=== PATIENT | female | born 1930 | race Caucasian/White ===

== ENCOUNTER 2018-02-23 15:21 | Inpatient (IN) | payer MEDICARE, OTHER ==
[2018-02-23] MEDS ORDERED: VALS160T2 PO (17:50)
[2018-02-23] MEDS ORDERED: ESCI10TA PO (17:50)
[2018-02-23] MEDS ORDERED: AMLO10TA2 PO (17:50)
[2018-02-23] MEDS ORDERED: DONE5TAB34 PO (17:50)
[2018-02-23] MEDS ORDERED: ATOR10TA PO (17:50)
[2018-02-23] MEDS ORDERED: MEMA10TA PO (17:50)
[2018-02-23] MEDS ORDERED: ACETAMINOPHEN 325 MG TABLET PO PRN (18:00)
[2018-02-23] MEDS ORDERED: MAG HYDROX/AL HYDROX/SIMETH 30 ML UDC PO PRN (18:00)
[2018-02-23] MEDS ORDERED: LORAZEPAM 0.5 MG TABLET PO PRN (18:00)
[2018-02-23] MEDS ORDERED: MAGNESIUM HYDROXIDE 30 ML UDC PO PRN (18:00)
[2018-02-23] MEDS ORDERED: ZOLPIDEM TARTRATE 5 MG TABLET PO PRN (18:00)
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
[2018-02-23] MEDS ORDERED: ESCITALOPRAM OXALATE (10 MG) 10 MG TABLET PO SCH (18:30)
[2018-02-23 19:52] VITALS: BP 155/59
[2018-02-23] MEDS: ATORVASTATIN 10 MG TABLET PO SCH (21:46)
[2018-02-23 23:00] VITALS: BP 138/66
[2018-02-24 07:40] LABS: CHOLESTEROL 147 mg/dL (<200); HDL CHOLESTEROL 58 mg/dL (40-60); LDL 82 mg/dL (0-99); TRIGLYCERIDES 76 mg/dL (30-150)
[2018-02-24 07:41] LABS: ALANINE AMINOTRANSFERASE 21 U/L (12-78); ALBUMIN 3.2 g/dL (3.4-5.0); ALKALINE PHOSPHATASE 76 U/L (46-116); ASPARTATE AMINOTRANSFERASE 18 U/L (15-37); BILIRUBIN,TOTAL 0.5 mg/dL (0.2-1.0); CALCIUM, SERUM 8.9 mg/dL (8.5-10.1); CARBON DIOXIDE 27 mmol/L (21-32); CHLORIDE 108 mmol/L (98-107); CREATININE 1.2 mg/dL (0.6-1.3); GLUCOSE 85 mg/dL (74-106); POTASSIUM 4.7 mmol/L (3.5-5.1); SODIUM SERUM 140 mmol/L (136-145); TOTAL PROTEIN, SERUM 6.6 g/dL (6.4-8.2); UREA NITROGEN, BLOOD 36 mg/dL (7-18)
[2018-02-24 08:00] VITALS: BP 155/62
[2018-02-24] MEDS: MEMANTINE HCL 5 MG TABLET PO SCH (08:17)
[2018-02-24] MEDS: AMLODIPINE BESYLATE 10 MG TABLET PO SCH (08:17)
[2018-02-24] MEDS: VALSARTAN 80 MG TABLET PO SCH (08:17)
[2018-02-24] MEDS: DONEPEZIL 5 MG TABLET PO SCH (08:18)
[2018-02-24] MEDS: CEPHALEXIN MONOHYDRATE 250 MG CAPSULE PO SCH ×3 (12:00→17:28)
[2018-02-24 16:00] VITALS: BP 138/57
--- NOTE | 2018-02-24 16:14 | NUR ---
Initial Discharge Plan: Pt currently lives in an apartment with her daughter, Ana Mejia ([phone]), located at [address] [place] [address]. Per pt, she would like to return there and her daughter stated that she wanted the same discharge plan as long as they get provided with home health. FREDI will work with the pt, the DPOA and the MD regarding appropriate discharge planning. SW will form a safe and proper discharge.
--- NOTE | 2018-02-24 16:15 | NUR ---
SW spoke with the pt's daughter, Ana Mejia ([phone]), and informed her that both her and her mother would want home health set up for them upon discharge.
[2018-02-24 20:03] VITALS: BP 164/59
[2018-02-24] MEDS: QUETIAPINE FUMARATE 25 MG TABLET PO SCH (21:22)
[2018-02-24] MEDS: ATORVASTATIN 10 MG TABLET PO SCH (21:22)
[2018-02-24 23:00] VITALS: BP 135/68
--- NOTE | 2018-02-25 03:06 | NUR ---
GPS RN NOTES PT. REFUSED KEFLEX AT 0000 ,EXPLAINED RISKS AND BENEFITS , ENCOURAGED, EXPLAINED RISKS AND BENEFITS STILL REFUSED , WILL CONTINUE TO ENCOURAGED TO COMPLY WITH MD REGIMEN .
[2018-02-25] MEDS: CEPHALEXIN MONOHYDRATE 250 MG CAPSULE PO SCH ×2 (05:30)
[2018-02-25] MEDS: AMLODIPINE BESYLATE 10 MG TABLET PO SCH (08:26)
[2018-02-25] MEDS: DONEPEZIL 5 MG TABLET PO SCH (08:26)
[2018-02-25] MEDS: VALSARTAN 80 MG TABLET PO SCH (08:26)
[2018-02-25] MEDS: MEMANTINE HCL 5 MG TABLET PO SCH (08:26)
[2018-02-25 08:33] VITALS: BP 156/61
[2018-02-25] MEDS: ESCITALOPRAM OXALATE (10 MG) 10 MG TABLET PO SCH (09:34)
--- NOTE | 2018-02-25 13:59 | NUR ---
SW called [facility] ([phone]) that the pt had before to see if they would be able to set it up for the pt once again but they stated that they do not have the staff available in the area anymore.
[2018-02-25] MEDS: CEPHALEXIN MONOHYDRATE 500 MG CAPSULE PO SCH ×2 (14:02→17:31)
[2018-02-25 16:18] VITALS: BP 146/62
[2018-02-25 20:00] VITALS: BP 106/51
[2018-02-25] MEDS: ATORVASTATIN 10 MG TABLET PO SCH (21:47)
[2018-02-25] MEDS: QUETIAPINE FUMARATE 25 MG TABLET PO SCH (21:47)
[2018-02-26] MEDS: CEPHALEXIN MONOHYDRATE 500 MG CAPSULE PO SCH ×4 (01:12→17:31)
[2018-02-26 08:00] VITALS: BP 119/69
[2018-02-26] MEDS: VALSARTAN 80 MG TABLET PO SCH (09:04)
[2018-02-26] MEDS: MEMANTINE HCL 5 MG TABLET PO SCH (09:04)
[2018-02-26] MEDS: ESCITALOPRAM OXALATE (10 MG) 10 MG TABLET PO SCH (09:04)
[2018-02-26] MEDS: DONEPEZIL 5 MG TABLET PO SCH (09:04)
[2018-02-26] MEDS: AMLODIPINE BESYLATE 10 MG TABLET PO SCH (09:05)
--- NOTE | 2018-02-26 13:37 | NUR ---
FREDI called [facility] ([phone]) and was unable to gain a response.
--- NOTE | 2018-02-26 13:38 | NUR ---
FREDI sent A to [facility] a referral for the pt to the fax number: [phone].
--- NOTE | 2018-02-26 14:25 | NUR ---
Allyson from [facility] ([phone]) called the SW and stated that she had some questions so the SW directed her to the pt's daughter, Ana ([phone]).
--- NOTE | 2018-02-26 14:31 | NUR ---
Pt's daughter, Ana ([phone]), informed the SW that her friend will come with her to picker the pt at 11AM tomorrow.
[2018-02-26 16:02] VITALS: BP 113/59
[2018-02-26 20:00] VITALS: BP 140/64
[2018-02-26] MEDS: ATORVASTATIN 10 MG TABLET PO SCH (21:29)
[2018-02-26] MEDS: QUETIAPINE FUMARATE 25 MG TABLET PO SCH (21:29)
[2018-02-27] MEDS: CEPHALEXIN MONOHYDRATE 500 MG CAPSULE PO SCH ×2 (00:06→06:31)
[2018-02-27 08:04] VITALS: BP 131/55
--- NOTE | 2018-02-27 08:43 | NUR ---
DR. JORGE GAVE AN ORDER TO D/C HOME TODAY AND TO FOLLOW UP WITH PSYCH AND MEDICAL DOCTORS. DAUGHTER KALLI YEE MADE AWARE AND AGREED AND SAID SHE WILL COME TO PICK HER UP.
[2018-02-27] MEDS: VALSARTAN 80 MG TABLET PO SCH (09:09)
[2018-02-27 09:10] VITALS: BP 131/55
[2018-02-27] MEDS: DONEPEZIL 5 MG TABLET PO SCH (09:10)
[2018-02-27] MEDS: ESCITALOPRAM OXALATE (10 MG) 10 MG TABLET PO SCH (09:10)
[2018-02-27] MEDS: AMLODIPINE BESYLATE 10 MG TABLET PO SCH (09:10)
[2018-02-27] MEDS: MEMANTINE HCL 5 MG TABLET PO SCH (09:10)
--- NOTE | 2018-02-27 14:39 | NUR ---
GPS/RN PT DISCHARGED HOME WITH DAUGHTER KALLI VIA [place]IVATE [place]. PRESCRIPTIONS AND EXIT CARE INSTRUCTIONS PROVIDED. NO SI OR HI NOTED AT THE TIME OF D/C. PT IS AMBULATORY NO DISTRESS NOTED. VSS. REFUSED PICTURES TAKEN ON DISCHARGE. PROPERTY AND VALUABLES FROM THE SAFE RETURNED.
--- NOTE | 2018-03-01 09:37 | NUR ---
Ana ([phone]) called the SW and discussed the aftercare plan and the referrals that were provided to the pt.
--- NOTE | 2018-03-01 10:09 | NUR ---
Discharge Note: Pt was discharged home to [address] [place] [address]; ([phone]). Pt was picked up by her daughter, Ana ([phone]) and her friend, Nikia ([phone]) at 11AM. Pt was set up with a referral with to [facility] as well as with psychiatrist and aquaculture director referrals. When speaking to the pts daughter, Ana ([phone]), the was informed that the pt was in a euthymic mood at discharge and that she appeared to have a calm affect. The pt also denied having any suicidal or homicidal ideation as well as visual and auditory hallucinations. Pt was referred to be under the care of a psychiatrist, Dr. Rakesh Esquivel, located at [address] [place] [address]; [phone] and an aquaculture director, Dr. Nataly Horta, located at [address] [place] [address]; [phone].
== END 2018-02-27 11:30 | disposition home or self-care (01) | DRG 885 ==
LOC: GPS 17:12
PROVIDERS: ADMIT Psychiatry & Neurology Psychiatry; ATTEND Internal Medicine
DX: F29 Unspecified psychosis not due to a substance or known physiological condition (principal); F03.91 Unspecified dementia, unspecified severity, with behavioral disturbance; N39.0 Urinary tract infection, site not specified; F41.9 Anxiety disorder, unspecified; D63.8 Anemia in other chronic diseases classified elsewhere; E78.5 Hyperlipidemia, unspecified; F32.9 Major depressive disorder, single episode, unspecified; I12.9 Hypertensive chronic kidney disease with stage 1 through stage 4 chronic kidney disease, or unspecified chronic kidney disease; N18.2 Chronic kidney disease, stage 2 (mild); I25.10 Atherosclerotic heart disease of native coronary artery without angina pectoris; Z79.899 Other long term (current) drug therapy
CPT/HCPCS: 36415; 80053-TC; 80061-TC; 87081-TC

== ENCOUNTER 2018-04-26 18:43 | Inpatient (IN) | payer MEDICARE, OTHER ==
[~2018-04-26] VITALS: Ht 157.5 cm; Wt 59.9 kg
[~2018-04-26 18:43] MED LIST: AMLO10TA6 PO; ATOR10TA PO; DONE5TAB34 PO; ESCI10TA PO; MEMA10TA PO; VALS160T2 PO
[2018-04-26] MEDS ORDERED: ACETAMINOPHEN 325 MG TABLET PO PRN (20:30)
[2018-04-26] MEDS ORDERED: MAG HYDROX/AL HYDROX/SIMETH 30 ML UDC PO PRN (20:30)
[2018-04-26] MEDS ORDERED: ZOLPIDEM TARTRATE 5 MG TABLET PO PRN (20:30)
[2018-04-26] MEDS ORDERED: LORAZEPAM 0.5 MG TABLET PO PRN (20:30)
[2018-04-26] MEDS ORDERED: MAGNESIUM HYDROXIDE 30 ML UDC PO PRN (20:30)
[2018-04-26 20:53] VITALS: BP 175/64
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
[2018-04-27 07:24] LABS: CHOLESTEROL 144 mg/dL (<200); HDL CHOLESTEROL 55 mg/dL (40-60); LDL 90 mg/dL (0-99); TRIGLYCERIDES 80 mg/dL (30-150)
[2018-04-27 07:25] LABS: ALANINE AMINOTRANSFERASE 7 U/L (12-78); ALBUMIN 3.1 g/dL (3.4-5.0); ALKALINE PHOSPHATASE 70 U/L (46-116); ASPARTATE AMINOTRANSFERASE 16 U/L (15-37); BILIRUBIN,TOTAL 0.4 mg/dL (0.2-1.0); CALCIUM, SERUM 8.5 mg/dL (8.5-10.1); CARBON DIOXIDE 27 mmol/L (21-32); CHLORIDE 107 mmol/L (98-107); CREATININE 1.5 mg/dL (0.6-1.3); GLUCOSE 85 mg/dL (74-106); POTASSIUM 4.3 mmol/L (3.5-5.1); SODIUM SERUM 141 mmol/L (136-145); TOTAL PROTEIN, SERUM 6.6 g/dL (6.4-8.2); UREA NITROGEN, BLOOD 38 mg/dL (7-18)
[2018-04-27 08:00] VITALS: BP 150/71
[2018-04-27 16:11] VITALS: BP 158/75
[2018-04-27] MEDS: MEMANTINE HCL 5 MG TABLET PO SCH (16:36)
[2018-04-27] MEDS ORDERED: ASPI-1152 PO (17:15)
[2018-04-27] MEDS ORDERED: LOSA50TA21 PO (17:15)
[2018-04-27] MEDS ORDERED: QUET25TA PO (17:15)
[2018-04-27 21:00] VITALS: BP 149/57
[2018-04-27] MEDS: DONEPEZIL 5 MG TABLET PO SCH (21:12)
[2018-04-27] MEDS: QUETIAPINE FUMARATE 25 MG TABLET PO SCH (21:12)
[2018-04-27] MEDS: ATORVASTATIN 10 MG TABLET PO SCH (21:12)
[2018-04-28 08:00] VITALS: BP 147/59
[2018-04-28] MEDS: ESCITALOPRAM OXALATE (10 MG) 10 MG TABLET PO SCH (08:56)
[2018-04-28] MEDS: MEMANTINE HCL 5 MG TABLET PO SCH ×2 (08:56→17:07)
[2018-04-28] MEDS: ASPIRIN EC 81 MG TABLET.DR PO SCH (08:56)
[2018-04-28] MEDS: AMLODIPINE BESYLATE 10 MG TABLET PO SCH (08:56)
[2018-04-28] MEDS: LOSARTAN POTASSIUM 50 MG TABLET PO SCH ×2 (08:57→17:09)
[2018-04-28] MEDS ORDERED: MEMANTINE HCL 5 MG TABLET PO SCH (09:00)
[2018-04-28] MEDS ORDERED: DONEPEZIL 5 MG TABLET PO SCH (09:00)
--- NOTE | 2018-04-28 11:05 | NUR ---
RN-CO: Encouraged patient to take a shower, pt agreed.
--- NOTE | 2018-04-28 13:21 | NUR ---
FREDI called the pt's daughter and DPOA, Ana ([phone]), and discussed the discharge plan. Aan stated that she and the pt are going through a legal starks and so she would like her to be discharged home until that is resolved. She stated that she would look into placing the pt somewhere once that is complete.
--- NOTE | 2018-04-28 13:23 | NUR ---
Initial Discharge Plan: Pt currently resides with her daughter, Ana ([phone]), at [address], [place] [address]. Per pt, she would like to return home upon discharge. FREDI will work with the pt, the DPOA, and the MD regarding appropriate discharge planning. SW will form a safe and proper discharge.
[2018-04-28 16:00] VITALS: BP 134/55
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
[2018-04-28 19:59] VITALS: BP 156/64
[2018-04-28] MEDS: DONEPEZIL 5 MG TABLET PO SCH (21:18)
[2018-04-28] MEDS: ATORVASTATIN 10 MG TABLET PO SCH (21:18)
[2018-04-28] MEDS: QUETIAPINE FUMARATE 25 MG TABLET PO SCH (21:18)
[2018-04-29 08:00] VITALS: BP 142/60
[2018-04-29] MEDS: ASPIRIN EC 81 MG TABLET.DR PO SCH (09:16)
[2018-04-29] MEDS: AMLODIPINE BESYLATE 10 MG TABLET PO SCH (09:16)
[2018-04-29] MEDS: ESCITALOPRAM OXALATE (10 MG) 10 MG TABLET PO SCH (09:16)
[2018-04-29] MEDS: MEMANTINE HCL 5 MG TABLET PO SCH ×2 (09:16→17:24)
[2018-04-29] MEDS: LOSARTAN POTASSIUM 50 MG TABLET PO SCH ×2 (09:17→17:25)
[2018-04-29 17:31] VITALS: BP 115/65
--- NOTE | 2018-04-29 19:50 | NUR ---
RN INITIAL NOTES: PT RESTING IN BED, PER REPORT SHE IS ISOLATIVE IN HER ROOM. PT IS A/O X2-3, CALM AND COOPERATIVE, MED COMPLIANT, AMBULATORY, CONTINENT, DENIES ANY PAIN OR DISCOMFORT AT THIS TIME, RESPIRATION EVEN AND UNLABORED. SAFETY PRECAUTIOJNS FOR FALL INITIATED, BED ALARM SECURED, SIDE RAILS UP X2 FOR SAFETY, WILL CONTINUE MONITORING PT FOR SAFETY [id number] AND FOR ANY CHANGES IN BEHAVIOR.
[2018-04-29 20:00] VITALS: BP 117/55
[2018-04-29] MEDS: QUETIAPINE FUMARATE 25 MG TABLET PO SCH (21:07)
[2018-04-29] MEDS: ATORVASTATIN 10 MG TABLET PO SCH (21:07)
[2018-04-29] MEDS: DONEPEZIL 5 MG TABLET PO SCH (21:07)
[2018-04-30 08:00] VITALS: BP 143/68
[2018-04-30] MEDS: AMLODIPINE BESYLATE 10 MG TABLET PO SCH (09:18)
[2018-04-30] MEDS: ASPIRIN EC 81 MG TABLET.DR PO SCH (09:18)
[2018-04-30] MEDS: MEMANTINE HCL 5 MG TABLET PO SCH ×2 (09:18→16:23)
[2018-04-30] MEDS: ESCITALOPRAM OXALATE (10 MG) 10 MG TABLET PO SCH (09:18)
[2018-04-30] MEDS: LOSARTAN POTASSIUM 50 MG TABLET PO SCH ×2 (09:19→16:23)
--- NOTE | 2018-04-30 14:29 | NUR ---
SW called the pt's daughter, Ana ([phone]), and discussed residential homes as a potential option for a discharge plan. SW provided the daughter with a couple of facilities and their locations. Pt's daughter stated that she will think about it over the weekend and then call the SW back on Thursday.
--- NOTE | 2018-04-30 14:31 | NUR ---
SW talked to the pt about [place] as a potential discharge plan and the pt stated that she is open to the idea.
[2018-04-30 16:00] VITALS: BP 138/69
[2018-04-30 20:00] VITALS: BP 139/58
[2018-04-30 20:50] VITALS: BP 130/70
[2018-04-30] MEDS: ATORVASTATIN 10 MG TABLET PO SCH (21:28)
[2018-04-30] MEDS: DONEPEZIL 5 MG TABLET PO SCH (21:28)
[2018-04-30] MEDS: QUETIAPINE FUMARATE 25 MG TABLET PO SCH (21:30)
[2018-04-30 23:00] VITALS: BP 125/68
[2018-05-01 08:00] VITALS: BP 116/62
[2018-05-01] MEDS: AMLODIPINE BESYLATE 10 MG TABLET PO SCH (08:13)
[2018-05-01] MEDS: LOSARTAN POTASSIUM 50 MG TABLET PO SCH ×2 (08:13→16:20)
[2018-05-01] MEDS: ASPIRIN EC 81 MG TABLET.DR PO SCH (08:13)
[2018-05-01] MEDS: MEMANTINE HCL 5 MG TABLET PO SCH ×2 (08:13→16:20)
[2018-05-01] MEDS: ESCITALOPRAM OXALATE (10 MG) 10 MG TABLET PO SCH (08:14)
[2018-05-01 16:00] VITALS: BP 134/61
[2018-05-01 20:00] VITALS: BP 133/56
[2018-05-01] MEDS: QUETIAPINE FUMARATE 25 MG TABLET PO SCH (21:17)
[2018-05-01] MEDS: ATORVASTATIN 10 MG TABLET PO SCH (21:18)
[2018-05-01] MEDS: DONEPEZIL 5 MG TABLET PO SCH (21:18)
[2018-05-01 23:00] VITALS: BP 128/67
[2018-05-02 08:00] VITALS: BP 143/65
[2018-05-02 08:48] VITALS: BP 143/65
[2018-05-02] MEDS: ESCITALOPRAM OXALATE (10 MG) 10 MG TABLET PO SCH (09:01)
[2018-05-02] MEDS: MEMANTINE HCL 5 MG TABLET PO SCH ×2 (09:02→17:09)
[2018-05-02] MEDS: ASPIRIN EC 81 MG TABLET.DR PO SCH (09:02)
[2018-05-02] MEDS: AMLODIPINE BESYLATE 10 MG TABLET PO SCH (09:02)
[2018-05-02] MEDS: LOSARTAN POTASSIUM 50 MG TABLET PO SCH ×2 (09:03→17:09)
[2018-05-02 16:00] VITALS: BP 130/55
[2018-05-02 20:00] VITALS: BP 127/54
[2018-05-02] MEDS: DONEPEZIL 5 MG TABLET PO SCH (21:41)
[2018-05-02] MEDS: ATORVASTATIN 10 MG TABLET PO SCH (21:41)
[2018-05-02] MEDS: QUETIAPINE FUMARATE 25 MG TABLET PO SCH (21:41)
[2018-05-03 08:00] VITALS: BP 133/67
[2018-05-03] MEDS: ESCITALOPRAM OXALATE (10 MG) 10 MG TABLET PO SCH (09:07)
[2018-05-03] MEDS: ASPIRIN EC 81 MG TABLET.DR PO SCH (09:07)
[2018-05-03] MEDS: LOSARTAN POTASSIUM 50 MG TABLET PO SCH ×2 (09:08→16:21)
[2018-05-03] MEDS: AMLODIPINE BESYLATE 10 MG TABLET PO SCH (09:08)
[2018-05-03] MEDS: MEMANTINE HCL 5 MG TABLET PO SCH ×2 (09:08→16:21)
--- NOTE | 2018-05-03 11:02 | NUR ---
Rogelio ([phone]) from [facility] called the SW and discussed when the pt will be discharging.
--- NOTE | 2018-05-03 11:25 | NUR ---
FREDI called the pt's daughter, Ana ([phone]), and discussed when the pt would be able to return home to be in her care.
--- NOTE | 2018-05-03 14:35 | NUR ---
RN-CO: ENCOURAGED PT TO SHOWER TODAY.
[2018-05-03 14:57] LABS: BASOPHILS % (AUTO) 0.6 % (0.0-2.0); EOSINOPHILS % (AUTO) 4.3 % (0.0-6.0); HEMATOCRIT 35 % (33-45); HEMOGLOBIN 11.1 g/dL (11.5-14.8); LYMPHOCYTES % (AUTO) 25.8 % (20.0-44.0); MEAN CORPUSCULAR HGB CONC 32 g/dl (31.0-36.0); MEAN CORPUSCULAR VOLUME 89 fL (82-100); MONOCYTES # (AUTO) 0.9 /CMM (0.1-1.30); MONOCYTES % (AUTO) 11.4 % (2.0-12.0); NEUTROPHILS # (AUTO) 4.4 /CMM (1.8-8.9); NEUTROPHILS % (AUTO) 57.9 % (43.0-81.0); PLATELET COUNT (AUTO) 280 /CMM (150-450); RDW COEFFICIENT OF VARIATION 14.5 (11.5-15.0); RED BLOOD CELL COUNT(AUTO) 3.88 MIL/uL (4.0-5.2); WHITE BLOOD COUNT (AUTO) 7.7 K/uL (4.3-11.0)
[2018-05-03 15:07] LABS: CALCIUM, SERUM 8.7 mg/dL (8.5-10.1); CARBON DIOXIDE 27 mmol/L (21-32); CHLORIDE 107 mmol/L (98-107); CREATININE 1.5 mg/dL (0.6-1.3); GLUCOSE 104 mg/dL (74-106); POTASSIUM 4.7 mmol/L (3.5-5.1); SODIUM SERUM 143 mmol/L (136-145); UREA NITROGEN, BLOOD 50 mg/dL (7-18)
[2018-05-03 16:00] VITALS: BP 136/69
[2018-05-03 20:38] VITALS: BP 151/63
[2018-05-03] MEDS: QUETIAPINE FUMARATE 25 MG TABLET PO SCH (21:46)
[2018-05-03] MEDS: ATORVASTATIN 10 MG TABLET PO SCH (21:46)
[2018-05-03] MEDS: DONEPEZIL 5 MG TABLET PO SCH (21:46)
[2018-05-04 08:00] VITALS: BP 157/61
[2018-05-04] MEDS: ASPIRIN EC 81 MG TABLET.DR PO SCH (09:07)
[2018-05-04] MEDS: MEMANTINE HCL 5 MG TABLET PO SCH ×2 (09:07→16:27)
[2018-05-04] MEDS: ESCITALOPRAM OXALATE (10 MG) 10 MG TABLET PO SCH (09:07)
[2018-05-04] MEDS: LOSARTAN POTASSIUM 50 MG TABLET PO SCH ×2 (09:08→16:27)
[2018-05-04] MEDS: AMLODIPINE BESYLATE 10 MG TABLET PO SCH (09:08)
--- NOTE | 2018-05-04 13:35 | NUR ---
FREDI called the pt's daughter and DPOA, Ana ([phone]), and informed her that the hospital can arrange for the transportation for the pt to go home tomorrow.
[2018-05-04 16:00] VITALS: BP 127/55
[2018-05-04] MEDS: DONEPEZIL 5 MG TABLET PO SCH (21:05)
[2018-05-04] MEDS: QUETIAPINE FUMARATE 25 MG TABLET PO SCH (21:05)
[2018-05-04] MEDS: ATORVASTATIN 10 MG TABLET PO SCH (21:05)
[2018-05-04 21:12] VITALS: BP 132/63
--- NOTE | 2018-05-05 06:03 | NUR ---
GPS-RN PATIENT JUST WOKEN UP AND COMPLAINED OF OCCASIONAL NON-PRODUCTIVE COUGH, NO WHEEZING NOTED. VITAL SIGNS STABLE. O2 SATURATION @97% AND PATIENT IS ALERT, ORIENTED X3-4, AND REQUESTING FOR BREATHING TREATMENT. DIRECTOR OF COMMUNITY LIFE CHU NOTIFIED WITH NEW ORDER OF ALBUTEROL 2.5MG/3ML UD X1 DOSE ONLY, ORDER NOTED AND CARRIED OUT.
[2018-05-05] MEDS ORDERED: ALBUTEROL FS 2.5 MG/3 ML VIAL.NEB NEB ONE (07:00)
[2018-05-05 08:00] VITALS: BP 136/61
[2018-05-05 09:40] VITALS: BP 136/61
[2018-05-05] MEDS: MEMANTINE HCL 5 MG TABLET PO SCH (09:40)
[2018-05-05] MEDS: LOSARTAN POTASSIUM 50 MG TABLET PO SCH (09:40)
[2018-05-05] MEDS: ASPIRIN EC 81 MG TABLET.DR PO SCH (09:40)
[2018-05-05] MEDS: AMLODIPINE BESYLATE 10 MG TABLET PO SCH (09:40)
[2018-05-05] MEDS: ESCITALOPRAM OXALATE (10 MG) 10 MG TABLET PO SCH (09:40)
--- NOTE | 2018-05-05 11:00 | NUR ---
HKC-LR-JNFMS: PT IS 87 YEARS OLD FEMALE DISCHARGE TO HOME LOCATED AT [address] [place] [address], [facility] [address], [place]. [address] ([phone]) IN STABLE CONDITION. PT IS ALERT AND ORIENTED X3-4. COMPLAINT WITH MEDICATIONS, COOPERATIVE WITH TREATMENT PLANS. PT DENIES SI/HI AND INSTRUCTED TO GO TO THE CLOSEST ER IF DEVELOPING SI/HI. BEHAVIOR IMPROVED, PSYCHIATRIC TX PLANS MET, MEDICAL TX PLANS DEFERRED FOR CONTINUAL MONITORING. EDUCATED PT ABOUT AFTER CARE PLAN AND COPY PROVIDED. RETURNED PERSONAL BELONGINGS TO PT. MEDICATIONS RECONCILED WITH DR. JORGE AND DR. EASON. PT SIGNED DISCHARGE PAPERWORK. SKIN ASSESSMENT DONE. PT LEFT THE UNIT VIA TAXI.
--- NOTE | 2018-05-05 12:31 | NUR ---
FREDI called Rogelio ([phone]) from [facility] and informed her that the pt discharged earlier today and asked the SW to fax the paperwork over.
--- NOTE | 2018-05-05 12:32 | NUR ---
FREDI sent a home health referral to Rogelio ([phone]) from [facility] to the fax number: [phone].
--- NOTE | 2018-05-05 12:37 | NUR ---
Discharge Note: Pt was discharged home to [address] [place] [address]; ([phone]). Pt was transported via cab at 11AM. Pts daughter and DPAna WOODS ([phone]) approved of this discharge. Upon discharge, the pt appeared to be in a euthymic mood and presented with an anxious affect. She stated, I cannot believe I am finally leaving today. Pt denied both suicidal and homicidal ideation as well as auditory and visual hallucinations. Pt was referred to [facility] and the faxed the appropriate paperwork to the fax number: [phone] upon discharge. Pt was referred to a psychiatrist, Dr. Rakesh Esquivel, located at [address] [place] [address]; [phone] and was referred to a medical chief of hospital medicine, Dr. Nataly Horta, located at [address] [place] [address]; [phone].
== END 2018-05-05 11:00 | disposition home or self-care (01) | DRG 885 ==
LOC: GPS 18:43
PROVIDERS: ADMIT Psychiatry & Neurology Psychiatry
DX: F29 Unspecified psychosis not due to a substance or known physiological condition (principal); F03.91 Unspecified dementia, unspecified severity, with behavioral disturbance; F32.9 Major depressive disorder, single episode, unspecified; D63.8 Anemia in other chronic diseases classified elsewhere; N18.2 Chronic kidney disease, stage 2 (mild); I12.9 Hypertensive chronic kidney disease with stage 1 through stage 4 chronic kidney disease, or unspecified chronic kidney disease; E78.5 Hyperlipidemia, unspecified; I25.10 Atherosclerotic heart disease of native coronary artery without angina pectoris
CPT/HCPCS: 36415; 80048-TC; 80053-TC; 80061-TC; 85025-TC; 87081-TC

== ENCOUNTER 2018-12-04 17:54 | Inpatient (IN) | payer MEDICARE, OTHER ==
[~2018-12-04] VITALS: Ht 152.4 cm; Wt 65.8 kg
[~2018-12-04 17:54] MED LIST changes: -AMLO10TA6 PO; +AMLO10TA7 PO; +ASPI-1152 PO; +LOSA50TA39 PO; +QUET25TA PO; -VALS160T2 PO
--- NOTE | 2018-12-04 18:11 | NUR ---
SENT BY EMS ON 5150 HOLD FOR PSYCHIATRIC EVALUATION. PT IS CURRENTLY VERY PLEASANT. AOX2, AMBULATORY, VSS, RR EVEN AND UNLABORED ON RA. SHE IS UNSURE WHY SHE IS IN THE ER. NO ACUTE DISTRESS NOTED, AND NO MEDICAL COMPLAINTS AT THIS TIME. MADE COMFORTABLE AND READY FOR EVAL.
[2018-12-04 18:31] LABS: BASOPHILS # (AUTO) 0.1 /CMM (0.0-0.2); BASOPHILS % (AUTO) 1.3 % (0.0-2.0); EOSINOPHILS % (AUTO) 4.2 % (0.0-6.0); HEMATOCRIT 29 % (33-45); HEMOGLOBIN 9.4 g/dL (11.5-14.8); LYMPHOCYTES # (AUTO) 1.9 /CMM (0.8-4.8); LYMPHOCYTES % (AUTO) 30.6 % (20.0-44.0); MEAN CORPUSCULAR HGB CONC 32 g/dl (31.0-36.0); MEAN CORPUSCULAR VOLUME 88 fL (82-100); MONOCYTES # (AUTO) 0.7 /CMM (0.1-1.30); MONOCYTES % (AUTO) 12.4 % (2.0-12.0); NEUTROPHILS # (AUTO) 3.1 /CMM (1.8-8.9); NEUTROPHILS % (AUTO) 51.5 % (43.0-81.0); PLATELET COUNT (AUTO) 199 /CMM (150-450); RED BLOOD CELL COUNT(AUTO) 3.31 MIL/uL (4.0-5.2)
[2018-12-04 18:40] LABS: CALCIUM, SERUM 8.7 mg/dL (8.5-10.1); CARBON DIOXIDE 27 mmol/L (21-32); CHLORIDE 109 mmol/L (98-107); CREATININE 1.7 mg/dL (0.6-1.3); GLUCOSE 115 mg/dL (74-106); POTASSIUM 4.1 mmol/L (3.5-5.1); SODIUM SERUM 144 mmol/L (136-145); UREA NITROGEN, BLOOD 33 mg/dL (7-18)
[2018-12-04 18:45] LABS: ALANINE AMINOTRANSFERASE 15 U/L (12-78); ALCOHOL, BLOOD < 3 mg/dL (0-0); ALKALINE PHOSPHATASE 87 U/L (46-116); ASPARTATE AMINOTRANSFERASE 14 U/L (15-37); BILIRUBIN,TOTAL 0.2 mg/dL (0.2-1.0); TOTAL PROTEIN, SERUM 6.2 g/dL (6.4-8.2)
[2018-12-04 18:46] LABS: ACETAMINOPHEN < 10 ug/ml (10-30)
--- NOTE | 2018-12-04 19:49 | NUR ---
GOT BED 216-A
[2018-12-04 20:11] LABS: APPEARANCE,URINE Clear (CLEAR); BILIRUBIN,URINE Negative (NEGATIVE); BLOOD, URINE Negative Ery/uL (NEGATIVE); COLOR,URINE Yellow (YELLOW); KETONES,URINE Negative (NEGATIVE); LEUKOCYTE ESTERASE ,URINE Small (NEGATIVE); NITRITE, URINE Negative (NEGATIVE); PROTEIN,URINE Negative (NEGATIVE); UGLUCOSE Negative (NEGATIVE); UROBILINOGEN,URINE 0.2 EU/dL (0.2)
--- NOTE | 2018-12-04 20:16 | NUR ---
GAVE PT SANDWICH AND PUDDING
--- NOTE | 2018-12-04 20:27 | NUR ---
REPORT GIVEN TO JCARLOS FOR 215-A
--- NOTE | 2018-12-04 20:40 | NUR ---
PT TRANSFERRED TO FLOOR VIA WC
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
[2018-12-04] MEDS ORDERED: ZOLPIDEM TARTRATE 5 MG TABLET PO PRN (21:30)
[2018-12-04] MEDS ORDERED: MAG HYDROX/AL HYDROX/SIMETH 30 ML UDC PO PRN (21:30)
[2018-12-04] MEDS ORDERED: LORAZEPAM 0.5 MG TABLET PO PRN (21:30)
[2018-12-04] MEDS ORDERED: MAGNESIUM HYDROXIDE 30 ML UDC PO PRN (21:30)
[2018-12-04] MEDS ORDERED: ACETAMINOPHEN 325 MG TABLET PO PRN (21:30)
[2018-12-04 21:41] LABS: BACTERIA,URINE Rare /HPF (None Seen); RBC,URINE NONE SEEN /HPF (0-2); SQUAMOUS EPITHELIAL CELL,UR Few /HPF (None Seen)
[2018-12-05 06:44] LABS: BASOPHILS # (AUTO) 0.1 /CMM (0.0-0.2); LYMPHOCYTES # (AUTO) 1.7 /CMM (0.8-4.8); MEAN CORPUSCULAR VOLUME 86 fL (82-100); MONOCYTES # (AUTO) 0.7 /CMM (0.1-1.30)
[2018-12-05 07:15] LABS: ALANINE AMINOTRANSFERASE 16 U/L (12-78); ALBUMIN 2.9 g/dL (3.4-5.0); ALKALINE PHOSPHATASE 82 U/L (46-116); ASPARTATE AMINOTRANSFERASE 13 U/L (15-37); BILIRUBIN,TOTAL 0.3 mg/dL (0.2-1.0); CALCIUM, SERUM 8.8 mg/dL (8.5-10.1); CARBON DIOXIDE 25 mmol/L (21-32); CHLORIDE 109 mmol/L (98-107); CREATININE 1.5 mg/dL (0.6-1.3); GLUCOSE 86 mg/dL (74-106); POTASSIUM 4.2 mmol/L (3.5-5.1); SODIUM SERUM 143 mmol/L (136-145); TOTAL PROTEIN, SERUM 6.3 g/dL (6.4-8.2); UREA NITROGEN, BLOOD 31 mg/dL (7-18)
[2018-12-05 07:34] LABS: BASOPHILS % (AUTO) 1.1 % (0.0-2.0); EOSINOPHILS % (AUTO) 4.9 % (0.0-6.0); HEMATOCRIT 29 % (33-45); HEMOGLOBIN 9.9 g/dL (11.5-14.8); LYMPHOCYTES % (AUTO) 30.5 % (20.0-44.0); MEAN CORPUSCULAR HGB CONC 34 g/dl (31.0-36.0); MONOCYTES % (AUTO) 12.6 % (2.0-12.0); NEUTROPHILS # (AUTO) 2.9 /CMM (1.8-8.9); NEUTROPHILS % (AUTO) 50.9 % (43.0-81.0); PLATELET COUNT (AUTO) 207 /CMM (150-450); WHITE BLOOD COUNT (AUTO) 5.7 K/uL (4.3-11.0)
[2018-12-05 08:00] VITALS: BP 123/57
[2018-12-05 08:28] LABS: CHOLESTEROL 188 mg/dL (<200); HDL CHOLESTEROL 47 mg/dL (40-60); LDL 120 mg/dL (0-99); TRIGLYCERIDES 80 mg/dL (30-150)
[2018-12-05] MEDS: CEPHALEXIN MONOHYDRATE 500 MG CAPSULE PO SCH ×2 (08:33→21:19)
[2018-12-05] MEDS: ASPIRIN EC 81 MG TABLET.DR PO SCH (08:33)
[2018-12-05] MEDS: MEMANTINE HCL 5 MG TABLET PO SCH (08:33)
[2018-12-05] MEDS: AMLODIPINE BESYLATE 10 MG TABLET PO SCH (09:00)
[2018-12-05] MEDS: LOSARTAN POTASSIUM 50 MG TABLET PO SCH ×2 (09:00→16:28)
[2018-12-05] MEDS ORDERED: DONEPEZIL 5 MG TABLET PO SCH (09:00)
[2018-12-05 16:00] VITALS: BP 148/60
[2018-12-05] MEDS: QUETIAPINE FUMARATE 25 MG TABLET PO SCH (21:19)
[2018-12-05] MEDS: ATORVASTATIN 10 MG TABLET PO SCH (21:23)
[2018-12-05 21:46] VITALS: BP 151/64
[2018-12-06] MEDS: LOSARTAN POTASSIUM 50 MG TABLET PO SCH ×2 (08:55→17:05)
[2018-12-06] MEDS: ESCITALOPRAM OXALATE (10 MG) 10 MG TABLET PO SCH (08:55)
[2018-12-06] MEDS: CEPHALEXIN MONOHYDRATE 500 MG CAPSULE PO SCH ×2 (08:55→20:50)
[2018-12-06] MEDS: ASPIRIN EC 81 MG TABLET.DR PO SCH (08:55)
[2018-12-06] MEDS: AMLODIPINE BESYLATE 10 MG TABLET PO SCH (08:55)
[2018-12-06] MEDS: MEMANTINE HCL 5 MG TABLET PO SCH (08:55)
[2018-12-06 09:19] VITALS: BP 130/72
--- NOTE | 2018-12-06 14:00 | NUR ---
WOUND CARE CONSULT: PT PRESENTS WITH RT WRIST ABRASION, PRESENT ON ADMISSION. PT NOTED TO BE PICKING AT HER SKIN AT TIMES. PT IS AMBULATORY AND CONTINENT. WILL SEE PRN. RECOMMENDATIONS MADE FOR WOUND CARE. DISCUSSED WITH NURSING STAFF. Addendum: 12/06/18 at 1401 by BRUNILDA THOMPSON WNDNU Amended: Links added.
[2018-12-06] MEDS: NEOMY SULF/BACITRAC ZN/POLY 15 GM TUBE TP SCH (14:41)
--- NOTE | 2018-12-06 15:05 | NUR ---
FREDI called the pt's daughter/DPOA, Ana ([phone]), and informed her that the pt does not want any information to be released to her. FREDI stated that she did need her DPOA paperwork though to be in the chart. She stated that she would send it over.
--- NOTE | 2018-12-06 15:23 | NUR ---
Per pts gravely disabled status, FREDI called Ana ([phone]), pt's daughter/DPOA, and went over the pts initial treatment plan. It was discussed that the pt would most likely end up returning to the daughters home because she consistently states that she wants to be placed in a facility but once she understands what that entails she changes her mind and states that she wants an apartment without realizing that she does not have funds. FREDI will continue to work with the pt and the DPOA.
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
[2018-12-06 16:00] VITALS: BP 160/70
--- NOTE | 2018-12-06 16:12 | NUR ---
Initial Discharge Plan: Pt currently resides with her daughter, Ana Mejia ([phone]), in her home located at [address] [place] [address]. Per pt, she would like to be placed elsewhere so that she does not have to live with her daughter. FREDI will work with the pt and the MD regarding appropriate discharge planning. SW will form a safe and proper discharge plan.
--- NOTE | 2018-12-06 16:28 | NUR ---
PT was invited to group therapy but refused to attend
[2018-12-06] MEDS: DONEPEZIL 5 MG TABLET PO SCH (20:50)
[2018-12-06 20:53] VITALS: BP 156/80
[2018-12-06] MEDS: ATORVASTATIN 10 MG TABLET PO SCH (21:02)
[2018-12-06] MEDS: QUETIAPINE FUMARATE 25 MG TABLET PO SCH (21:02)
[2018-12-06 22:10] VITALS: BP 136/75
--- NOTE | 2018-12-06 23:15 | NUR ---
GPS-RN RELAYED EKG RESULT TO TRAFFIC SIGN SUPERVISOR ARCELIA WITH NO NEW ORDER AT THIS TIME.
[2018-12-07 08:00] VITALS: BP 141/62
[2018-12-07] MEDS: CEPHALEXIN MONOHYDRATE 500 MG CAPSULE PO SCH ×2 (09:20→20:45)
[2018-12-07] MEDS: ESCITALOPRAM OXALATE (10 MG) 10 MG TABLET PO SCH (09:20)
[2018-12-07] MEDS: ASPIRIN EC 81 MG TABLET.DR PO SCH (09:20)
[2018-12-07] MEDS: PANTOPRAZOLE 40 MG TABLET.DR PO SCH (09:20)
[2018-12-07] MEDS: MEMANTINE HCL 5 MG TABLET PO SCH (09:21)
[2018-12-07] MEDS: LOSARTAN POTASSIUM 50 MG TABLET PO SCH ×2 (09:21→17:12)
[2018-12-07] MEDS: AMLODIPINE BESYLATE 10 MG TABLET PO SCH (09:21)
[2018-12-07] MEDS: NEOMY SULF/BACITRAC ZN/POLY 15 GM TUBE TP SCH (09:21)
--- NOTE | 2018-12-07 10:40 | NUR ---
Supportive Counseling: Pt stated that she does is upset by the paperwork that was presented to her stating that she is gravely disabled. SW stated that this is the Hold Advisement and it basically states that the pt is gravely disabled because she cannot create a safety plan or identify [place] needs. SW stated that she will be assisting the pt in discharge planning.
[2018-12-07 16:00] VITALS: BP 136/63
--- NOTE | 2018-12-07 16:23 | NUR ---
VERY CONFUSED,BUT MED COMPLIANT AND COOPERATIVE.
[2018-12-07 20:00] VITALS: BP 145/59
[2018-12-07] MEDS: DONEPEZIL 5 MG TABLET PO SCH (20:45)
[2018-12-07] MEDS: ATORVASTATIN 10 MG TABLET PO SCH (21:01)
[2018-12-07] MEDS: QUETIAPINE FUMARATE 25 MG TABLET PO SCH (21:01)
[2018-12-08 08:00] VITALS: BP 117/73
[2018-12-08 08:01] LABS: BASOPHILS # (AUTO) 0.1 /CMM (0.0-0.2); BASOPHILS % (AUTO) 1.1 % (0.0-2.0); EOSINOPHILS % (AUTO) 4.5 % (0.0-6.0); HEMATOCRIT 33 % (33-45); HEMOGLOBIN 10.8 g/dL (11.5-14.8); LYMPHOCYTES # (AUTO) 1.8 /CMM (0.8-4.8); MEAN CORPUSCULAR HGB CONC 33 g/dl (31.0-36.0); MEAN CORPUSCULAR VOLUME 87 fL (82-100); MONOCYTES # (AUTO) 0.7 /CMM (0.1-1.30); MONOCYTES % (AUTO) 10.8 % (2.0-12.0); NEUTROPHILS # (AUTO) 3.4 /CMM (1.8-8.9); NEUTROPHILS % (AUTO) 54.6 % (43.0-81.0); PLATELET COUNT (AUTO) 232 /CMM (150-450); RED BLOOD CELL COUNT(AUTO) 3.78 MIL/uL (4.0-5.2); WHITE BLOOD COUNT (AUTO) 6.2 K/uL (4.3-11.0)
[2018-12-08 08:05] LABS: CALCIUM, SERUM 8.3 mg/dL (8.5-10.1); CARBON DIOXIDE 26 mmol/L (21-32); CHLORIDE 108 mmol/L (98-107); CREATININE 1.4 mg/dL (0.6-1.3); GLUCOSE 87 mg/dL (74-106); MAGNESIUM 2.3 mg/dL (1.8-2.4); PHOSPHORUS 3.6 mg/dL (2.5-4.9); POTASSIUM 4.3 mmol/L (3.5-5.1); SODIUM SERUM 144 mmol/L (136-145); UREA NITROGEN, BLOOD 29 mg/dL (7-18)
[2018-12-08] MEDS: ASPIRIN EC 81 MG TABLET.DR PO SCH (08:53)
[2018-12-08] MEDS: PANTOPRAZOLE 40 MG TABLET.DR PO SCH (08:53)
[2018-12-08] MEDS: ESCITALOPRAM OXALATE (10 MG) 10 MG TABLET PO SCH (08:54)
[2018-12-08] MEDS: AMLODIPINE BESYLATE 10 MG TABLET PO SCH (08:54)
[2018-12-08] MEDS: LOSARTAN POTASSIUM 50 MG TABLET PO SCH ×2 (08:54→16:27)
[2018-12-08] MEDS: MEMANTINE HCL 5 MG TABLET PO SCH (08:54)
[2018-12-08] MEDS: CEPHALEXIN MONOHYDRATE 500 MG CAPSULE PO SCH ×2 (08:54→21:06)
[2018-12-08] MEDS: NEOMY SULF/BACITRAC ZN/POLY 15 GM TUBE TP SCH (08:55)
--- NOTE | 2018-12-08 14:10 | NUR ---
Group Note: Pt was encouraged to participate in group therapy by the SW but she stated, "I do not need to participate in therapy."
[2018-12-08 16:00] VITALS: BP 129/56
[2018-12-08 20:11] VITALS: BP 142/59
[2018-12-08] MEDS: QUETIAPINE FUMARATE 25 MG TABLET PO SCH (21:06)
[2018-12-08] MEDS: DONEPEZIL 5 MG TABLET PO SCH (21:06)
[2018-12-08] MEDS: ATORVASTATIN 10 MG TABLET PO SCH (21:06)
[2018-12-09 08:19] VITALS: BP 125/55
[2018-12-09] MEDS: MEMANTINE HCL 5 MG TABLET PO SCH (08:20)
[2018-12-09] MEDS: LOSARTAN POTASSIUM 50 MG TABLET PO SCH ×2 (08:20→16:11)
[2018-12-09] MEDS: CEPHALEXIN MONOHYDRATE 500 MG CAPSULE PO SCH ×2 (08:20→20:28)
[2018-12-09] MEDS: ESCITALOPRAM OXALATE (10 MG) 10 MG TABLET PO SCH (08:20)
[2018-12-09] MEDS: PANTOPRAZOLE 40 MG TABLET.DR PO SCH (08:20)
[2018-12-09] MEDS: ASPIRIN EC 81 MG TABLET.DR PO SCH (08:20)
[2018-12-09] MEDS: AMLODIPINE BESYLATE 10 MG TABLET PO SCH (08:21)
[2018-12-09] MEDS: NEOMY SULF/BACITRAC ZN/POLY 15 GM TUBE TP SCH (08:33)
--- NOTE | 2018-12-09 11:30 | NUR ---
Group Note: SW encouraged the pt to participate in group therapy. Pt stated that she did not want to participate in group therapy because she does not think that she can benefit from it.
[2018-12-09 16:20] VITALS: BP 115/53
[2018-12-09 20:03] VITALS: BP 134/67
[2018-12-09] MEDS: DONEPEZIL 5 MG TABLET PO SCH (20:28)
[2018-12-09] MEDS: QUETIAPINE FUMARATE 25 MG TABLET PO SCH (22:06)
[2018-12-09] MEDS: ATORVASTATIN 10 MG TABLET PO SCH (22:06)
--- NOTE | 2018-12-09 23:18 | NUR ---
OFFERED SLEEPING PILL X2, PATIENT REFUSED.
[2018-12-10 08:00] VITALS: BP 148/74
[2018-12-10] MEDS: CEPHALEXIN MONOHYDRATE 500 MG CAPSULE PO SCH ×2 (08:16→20:40)
[2018-12-10] MEDS: LOSARTAN POTASSIUM 50 MG TABLET PO SCH ×2 (08:16→17:31)
[2018-12-10] MEDS: MEMANTINE HCL 5 MG TABLET PO SCH (08:16)
[2018-12-10] MEDS: PANTOPRAZOLE 40 MG TABLET.DR PO SCH (08:17)
[2018-12-10] MEDS: ESCITALOPRAM OXALATE (10 MG) 10 MG TABLET PO SCH (08:17)
[2018-12-10] MEDS: ASPIRIN EC 81 MG TABLET.DR PO SCH (08:17)
[2018-12-10] MEDS: AMLODIPINE BESYLATE 10 MG TABLET PO SCH (08:17)
[2018-12-10] MEDS: NEOMY SULF/BACITRAC ZN/POLY 15 GM TUBE TP SCH (08:18)
--- NOTE | 2018-12-10 13:07 | NUR ---
SW contacted the pt's daughter/DPOA, Ana Matson ([phone]), and informed her that the pt is not ready for discharge at this time and the psychiatrist has not provided the SW with a date. SW stated that once she has a date she will contact her and inform her. She also stated that the pt is currently refusing to go home with her.
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
[2018-12-10 16:00] VITALS: BP 141/68
[2018-12-10 20:00] VITALS: BP 152/63
[2018-12-10] MEDS: DONEPEZIL 5 MG TABLET PO SCH (20:40)
[2018-12-10] MEDS: ATORVASTATIN 10 MG TABLET PO SCH (21:04)
[2018-12-10] MEDS: QUETIAPINE FUMARATE 25 MG TABLET PO SCH (21:05)
[2018-12-11 08:00] VITALS: BP 109/60
[2018-12-11] MEDS: ESCITALOPRAM OXALATE (10 MG) 10 MG TABLET PO SCH (08:48)
[2018-12-11] MEDS: ASPIRIN EC 81 MG TABLET.DR PO SCH (08:48)
[2018-12-11] MEDS: MEMANTINE HCL 5 MG TABLET PO SCH (08:49)
[2018-12-11] MEDS: AMLODIPINE BESYLATE 10 MG TABLET PO SCH (08:49)
[2018-12-11] MEDS: LOSARTAN POTASSIUM 50 MG TABLET PO SCH ×2 (08:49→17:00)
[2018-12-11] MEDS: NEOMY SULF/BACITRAC ZN/POLY 15 GM TUBE TP SCH (08:49)
[2018-12-11] MEDS: CEPHALEXIN MONOHYDRATE 500 MG CAPSULE PO SCH ×2 (08:49→20:16)
[2018-12-11] MEDS: PANTOPRAZOLE 40 MG TABLET.DR PO SCH (08:53)
[2018-12-11 12:18] LABS: BASOPHILS # (AUTO) 0.1 /CMM (0.0-0.2); BASOPHILS % (AUTO) 0.9 % (0.0-2.0); EOSINOPHILS % (AUTO) 2.8 % (0.0-6.0); HEMATOCRIT 31 % (33-45); HEMOGLOBIN 10.4 g/dL (11.5-14.8); LYMPHOCYTES # (AUTO) 1.6 /CMM (0.8-4.8); LYMPHOCYTES % (AUTO) 21.5 % (20.0-44.0); MEAN CORPUSCULAR HGB CONC 34 g/dl (31.0-36.0); MEAN CORPUSCULAR VOLUME 86 fL (82-100); MONOCYTES # (AUTO) 0.7 /CMM (0.1-1.30); MONOCYTES % (AUTO) 9.6 % (2.0-12.0); NEUTROPHILS % (AUTO) 65.2 % (43.0-81.0); PLATELET COUNT (AUTO) 236 /CMM (150-450); RED BLOOD CELL COUNT(AUTO) 3.62 MIL/uL (4.0-5.2); WHITE BLOOD COUNT (AUTO) 7.6 K/uL (4.3-11.0)
[2018-12-11 12:31] LABS: CALCIUM, SERUM 8.2 mg/dL (8.5-10.1); CARBON DIOXIDE 25 mmol/L (21-32); CHLORIDE 107 mmol/L (98-107); CREATININE 1.5 mg/dL (0.6-1.3); GLUCOSE 72 mg/dL (74-106); MAGNESIUM 2.2 mg/dL (1.8-2.4); PHOSPHORUS 3.2 mg/dL (2.5-4.9); SODIUM SERUM 142 mmol/L (136-145); UREA NITROGEN, BLOOD 34 mg/dL (7-18)
[2018-12-11 16:00] VITALS: BP 115/53
[2018-12-11] MEDS: DONEPEZIL 5 MG TABLET PO SCH (20:16)
[2018-12-11 20:39] VITALS: BP 146/68
[2018-12-11] MEDS: ATORVASTATIN 10 MG TABLET PO SCH (21:00)
[2018-12-11] MEDS: QUETIAPINE FUMARATE 25 MG TABLET PO SCH (21:00)
[2018-12-12 07:59] LABS: BASOPHILS # (AUTO) 0.1 /CMM (0.0-0.2); EOSINOPHILS % (AUTO) 4.9 % (0.0-6.0); HEMATOCRIT 32 % (33-45); HEMOGLOBIN 10.3 g/dL (11.5-14.8); LYMPHOCYTES # (AUTO) 1.9 /CMM (0.8-4.8); LYMPHOCYTES % (AUTO) 32.7 % (20.0-44.0); MEAN CORPUSCULAR HGB CONC 33 g/dl (31.0-36.0); MEAN CORPUSCULAR VOLUME 86 fL (82-100); MONOCYTES # (AUTO) 0.6 /CMM (0.1-1.30); MONOCYTES % (AUTO) 11.4 % (2.0-12.0); NEUTROPHILS # (AUTO) 2.8 /CMM (1.8-8.9); PLATELET COUNT (AUTO) 229 /CMM (150-450); RED BLOOD CELL COUNT(AUTO) 3.68 MIL/uL (4.0-5.2); WHITE BLOOD COUNT (AUTO) 5.7 K/uL (4.3-11.0)
[2018-12-12 08:00] VITALS: BP 130/57
[2018-12-12 08:06] LABS: CALCIUM, SERUM 8.3 mg/dL (8.5-10.1); CARBON DIOXIDE 27 mmol/L (21-32); CHLORIDE 111 mmol/L (98-107); CREATININE 1.4 mg/dL (0.6-1.3); GLUCOSE 85 mg/dL (74-106); MAGNESIUM 2.4 mg/dL (1.8-2.4); PHOSPHORUS 3.9 mg/dL (2.5-4.9); POTASSIUM 4.5 mmol/L (3.5-5.1); SODIUM SERUM 144 mmol/L (136-145); UREA NITROGEN, BLOOD 31 mg/dL (7-18)
[2018-12-12] MEDS: ASPIRIN EC 81 MG TABLET.DR PO SCH (08:45)
[2018-12-12] MEDS: CEPHALEXIN MONOHYDRATE 500 MG CAPSULE PO SCH ×2 (08:45→21:08)
[2018-12-12] MEDS: PANTOPRAZOLE 40 MG TABLET.DR PO SCH (08:45)
[2018-12-12] MEDS: MEMANTINE HCL 5 MG TABLET PO SCH (08:45)
[2018-12-12] MEDS: ESCITALOPRAM OXALATE (10 MG) 10 MG TABLET PO SCH (08:45)
[2018-12-12] MEDS: AMLODIPINE BESYLATE 10 MG TABLET PO SCH (08:45)
[2018-12-12] MEDS: LOSARTAN POTASSIUM 50 MG TABLET PO SCH ×2 (08:46→16:17)
[2018-12-12] MEDS: NEOMY SULF/BACITRAC ZN/POLY 15 GM TUBE TP SCH (08:47)
[2018-12-12 16:00] VITALS: BP 135/51
[2018-12-12 20:09] VITALS: BP 146/57
[2018-12-12] MEDS: DONEPEZIL 5 MG TABLET PO SCH (21:08)
[2018-12-12] MEDS: ATORVASTATIN 10 MG TABLET PO SCH (21:08)
[2018-12-12] MEDS: QUETIAPINE FUMARATE 25 MG TABLET PO SCH (21:09)
[2018-12-13] MEDS: PANTOPRAZOLE 40 MG TABLET.DR PO SCH (08:30)
[2018-12-13] MEDS: ASPIRIN EC 81 MG TABLET.DR PO SCH (08:31)
[2018-12-13] MEDS: LOSARTAN POTASSIUM 50 MG TABLET PO SCH ×2 (08:31→16:45)
[2018-12-13] MEDS: MEMANTINE HCL 5 MG TABLET PO SCH (08:31)
[2018-12-13] MEDS: CEPHALEXIN MONOHYDRATE 500 MG CAPSULE PO SCH ×2 (08:31→20:55)
[2018-12-13] MEDS: AMLODIPINE BESYLATE 10 MG TABLET PO SCH (08:31)
[2018-12-13] MEDS: NEOMY SULF/BACITRAC ZN/POLY 15 GM TUBE TP SCH (08:32)
[2018-12-13] MEDS ORDERED: ESCITALOPRAM OXALATE (10 MG) 10 MG TABLET PO SCH (09:00)
[2018-12-13 10:44] VITALS: BP 126/54
[2018-12-13 16:00] VITALS: BP 144/56
[2018-12-13] MEDS: QUETIAPINE FUMARATE 25 MG TABLET PO SCH ×2 (16:45→21:17)
[2018-12-13 20:20] VITALS: BP 139/53
[2018-12-13] MEDS: DONEPEZIL 5 MG TABLET PO SCH (20:55)
[2018-12-13] MEDS: ATORVASTATIN 10 MG TABLET PO SCH (21:17)
[2018-12-14] MEDS: QUETIAPINE FUMARATE 25 MG TABLET PO SCH ×4 (08:02→21:02)
[2018-12-14] MEDS: ASPIRIN EC 81 MG TABLET.DR PO SCH (08:02)
[2018-12-14] MEDS: CEPHALEXIN MONOHYDRATE 500 MG CAPSULE PO SCH ×2 (08:03→20:41)
[2018-12-14] MEDS: MEMANTINE HCL 5 MG TABLET PO SCH (08:03)
[2018-12-14] MEDS: AMLODIPINE BESYLATE 10 MG TABLET PO SCH (08:04)
[2018-12-14] MEDS: LOSARTAN POTASSIUM 50 MG TABLET PO SCH ×2 (08:04→16:09)
[2018-12-14] MEDS: PANTOPRAZOLE 40 MG TABLET.DR PO SCH (08:05)
[2018-12-14] MEDS: NEOMY SULF/BACITRAC ZN/POLY 15 GM TUBE TP SCH (08:05)
[2018-12-14 08:52] VITALS: BP 139/68
--- NOTE | 2018-12-14 13:10 | NUR ---
FREDI called the pt's daughter/DPOA, Ana Matson ([phone]), and left a voicemail stating that the pts psychiatrist is aiming to discharge the pt on Thursday and that he is concerned that the pt will continue to refuse going back to her home so he stated that we need a Plan B. FREDI asked her to give the SW a call back to discuss this.
--- NOTE | 2018-12-14 13:28 | NUR ---
Pt's daughter/DPOA, Ana Matson ([phone]), called the SW and discussed how there is no chance that she is going to approve a facility because she just knows that the pt would benefit from having independence. SW stated that the tentative discharge plan is for Thursday and because she is the DPOA she can make the decision to have the pt return to her home.
--- NOTE | 2018-12-14 14:10 | NUR ---
Group Note: SW encouraged the pt to participate in group therapy. Pt stated that she did not want to participate in group therapy because she was going to be discharged the next day.
--- NOTE | 2018-12-14 15:57 | NUR ---
FREDI called the pt's daughter/DPOA, Ana Matson ([phone]), and discussed that the pt will be discharged tomorrow. Pts daughter stated that she will arrive around 1:30PM.
[2018-12-14 16:20] VITALS: BP 130/44
[2018-12-14 19:49] VITALS: BP 138/54
[2018-12-14] MEDS: DONEPEZIL 5 MG TABLET PO SCH (20:41)
[2018-12-14] MEDS: ATORVASTATIN 10 MG TABLET PO SCH (21:02)
[2018-12-15 08:00] VITALS: BP 142/50
[2018-12-15 08:40] LABS: SODIUM SERUM 143 mmol/L (136-145)
[2018-12-15 08:41] LABS: CALCIUM, SERUM 8.4 mg/dL (8.5-10.1); CARBON DIOXIDE 25 mmol/L (21-32); CHLORIDE 108 mmol/L (98-107); CREATININE 1.3 mg/dL (0.6-1.3); GLUCOSE 83 mg/dL (74-106); MAGNESIUM 2.1 mg/dL (1.8-2.4); PHOSPHORUS 3.5 mg/dL (2.5-4.9); POTASSIUM 4.3 mmol/L (3.5-5.1); UREA NITROGEN, BLOOD 27 mg/dL (7-18)
[2018-12-15] MEDS: CEPHALEXIN MONOHYDRATE 500 MG CAPSULE PO SCH (08:48)
[2018-12-15] MEDS: PANTOPRAZOLE 40 MG TABLET.DR PO SCH (08:48)
[2018-12-15] MEDS: ASPIRIN EC 81 MG TABLET.DR PO SCH (08:48)
[2018-12-15] MEDS: MEMANTINE HCL 5 MG TABLET PO SCH (08:50)
[2018-12-15] MEDS: LOSARTAN POTASSIUM 50 MG TABLET PO SCH (08:50)
[2018-12-15 08:51] VITALS: BP 141/60
[2018-12-15] MEDS: AMLODIPINE BESYLATE 10 MG TABLET PO SCH (08:51)
[2018-12-15] MEDS: QUETIAPINE FUMARATE 25 MG TABLET PO SCH ×2 (08:52→13:11)
[2018-12-15] MEDS: NEOMY SULF/BACITRAC ZN/POLY 15 GM TUBE TP SCH (08:52)
[2018-12-15 09:37] LABS: BASOPHILS % (AUTO) 1.1 % (0.0-2.0); EOSINOPHILS % (AUTO) 4.6 % (0.0-6.0); HEMATOCRIT 30 % (33-45); HEMOGLOBIN 9.9 g/dL (11.5-14.8); LYMPHOCYTES % (AUTO) 30.7 % (20.0-44.0); MEAN CORPUSCULAR HGB CONC 33 g/dl (31.0-36.0); MEAN CORPUSCULAR VOLUME 86 fL (82-100); MONOCYTES % (AUTO) 10.3 % (2.0-12.0); NEUTROPHILS % (AUTO) 53.3 % (43.0-81.0); PLATELET COUNT (AUTO) 226 /CMM (150-450); RED BLOOD CELL COUNT(AUTO) 3.51 MIL/uL (4.0-5.2); WHITE BLOOD COUNT (AUTO) 6.1 K/uL (4.3-11.0)
[2018-12-15 09:38] LABS: BASOPHILS # (AUTO) 0.1 /CMM (0.0-0.2); LYMPHOCYTES # (AUTO) 1.9 /CMM (0.8-4.8); MONOCYTES # (AUTO) 0.6 /CMM (0.1-1.30); NEUTROPHILS # (AUTO) 3.3 /CMM (1.8-8.9)
--- NOTE | 2018-12-15 13:40 | NUR ---
CINDER CREW WORKER NOTE: PATIENT IS A 88 YEAR OLD FEMALE BEING [facility]CHARGED [facility] [address] [facility], [facility], [address] . PATIENT IS IN STABLE CONDITION. VSS. NO SIGNS OF ACUTE DISTRESS NOTED. NO COMPLAINTS. SKIN CHECK COMPLETE WITH WOUND PICTURES IN CHART. PATIENT IS COOPERATIVE WITH MEDICATION MANAGEMENT AND COOPERATIVE WITH PLAN OF CARE. PATIENT IS AGITATED BUT ABLE TO RE-DIRECT. DENIES SI/HI, AUDITORY OR VISUAL HALLUCINATIONS AT THE TIME OF DISCHARGE. BEHAVIOR HAS IMPROVED, PSYCHIATRIC TREATMENT PLANS MET, MEDICAL TREATMENT PLANS DEFERRED FOR CONTINUAL MONITORING. EDUCATED PATIENT ABOUT AFTERCARE AND COPY PROVIDED. RETURNED BELONGINGS TO PATIENT. MEDICATIONS RECONCILED WITH DR. EASON AND DR. JORGE, BOTH OF WHICH AWARE OF THE DISCHARGE. PATIENT REFUSED TO SIGN DISCHARGE PAPERWORK. TFOR FOLLOW UP WITH PSYCHIATRIST DR. KYLE MCKEON LOCATED AT [address] [facility] [address] CARNES LOC[place] [address] [facility] [address] [facility] [id number] . FAMILY AT BEDSIDE TO RESOURCE SPECIALIST TEACHER PATIENT. LEFT THE FACILITY AMBULATING AT 13:45.
--- NOTE | 2018-12-15 14:57 | NUR ---
Discharge Note: Pt was discharged home to [address] [place] [address], [place] [address]; ([phone]). Pt was picked up by her daughter, Ana ([phone]), at around 1:30PM. Upon discharge, the pt appeared to be in a euthymic mood with a distressed affect. Pt stated that she was feeling upset. Pt denied both suicidal and homicidal ideation as well as auditory and visual hallucinations. Pt was referred to be under the care of a psychiatrist, Dr. Rakesh Esquivel, located at [address], [place]; and her managed care director, Dr. Echeverria, located at [address] [place], [place] [id number], [place] [id number]; , a fax of records was sent to: [phone].
== END 2018-12-15 13:45 | disposition home or self-care (01) | DRG 885 ==
LOC: ER 17:58 → GPS 20:00
PROVIDERS: ADMIT Psychiatry & Neurology Psychiatry
DX: F29 Unspecified psychosis not due to a substance or known physiological condition (principal); N18.9 Chronic kidney disease, unspecified; N17.9 Acute kidney failure, unspecified; N39.0 Urinary tract infection, site not specified; F03.91 Unspecified dementia, unspecified severity, with behavioral disturbance; E44.1 Mild protein-calorie malnutrition; I12.9 Hypertensive chronic kidney disease with stage 1 through stage 4 chronic kidney disease, or unspecified chronic kidney disease; E88.09 Other disorders of plasma-protein metabolism, not elsewhere classified; I25.10 Atherosclerotic heart disease of native coronary artery without angina pectoris; K21.9 Gastro-esophageal reflux disease without esophagitis; D63.8 Anemia in other chronic diseases classified elsewhere; D64.9 Anemia, unspecified; Z68.28 Body mass index [BMI] 28.0-28.9, adult; F32.9 Major depressive disorder, single episode, unspecified; E86.9 Volume depletion, unspecified; R23.4 Changes in skin texture
CPT/HCPCS: 36415; 80048-TC; 80053-TC; 80061-TC; 80076-TC; 80305; 81000-TC; 83735-TC; 84100-TC; 85025-TC; 87081-TC; 87086-TC; G0480